=== PATIENT | male | born 1955 | race Caucasian/White ===

== ENCOUNTER 2017-03-10 10:30 | Inpatient (IN) | payer MEDICARE ==
[~2017-03-10] VITALS: Ht 177.8 cm; Wt 114.5 kg
[~2017-03-10 10:30] MED LIST: ALLO300T29 PO; ASP81TEC PO; CAR180CD PO; CRES20T PO; EZET10T PO; GLPZ10T PO; HYDR50TA4 PO; INSU100V4 SQ; METO100T PO; POTA-17 PO; [UNRECOGNIZED DRUG - CODE] SQ; cartia XT PO
[2017-03-10 12:00] VITALS: BP 165/74; PULSE 62; RESP 22; O2SAT 97
[2017-03-10] MEDS ORDERED: Heparin 25,000 Unit/500 mL 0.45% NS Premix IV ONE (12:50)
[2017-03-10] MEDS ORDERED: Nitroglycerin 50 mg/250 mL D5W 50,000 MCG in IV Premix 1 EACH IV SCH (12:55)
[2017-03-10] MEDS: 0.9% Sodium Chloride 1,000 ML IV SCH ×2 (12:59)
[2017-03-10] MEDS ORDERED: Polyethylene Glycol (PEG) 17 Gm Powder PO PRN (13:25)
[2017-03-10] MEDS ORDERED: Ondansetron 2 mg/mL 2 mL Inj IVPUSH PRN (13:25)
[2017-03-10] MEDS ORDERED: Heparin 25K Unit/500mL 0.45 NS 25,000 UNIT in IV Premix 1 EACH IV SCH (13:25)
[2017-03-10] MEDS ORDERED: Glucose 40% Oral Gel 15 Gm Tube PO PRN (13:25)
[2017-03-10 13:56] LABS: BASOPHILS % (AUTO) 0.4 % (0-3); EOSINOPHILS % (AUTO) 3.5 % (0-5); MONOCYTES % (AUTO) 10.6 % (4-12); Mean Corpuscular Hemoglobin 29.4 pg (27.0-35.0); Mean Corpuscular Volume 90.5 fL (81-100); NEUTROPHILS % (AUTO) 63.5 % (40-74); Platelet Count 229 bil/L (150-400)
[2017-03-10 14:36] LABS: TROPONIN T 0.216 ug/L (0.0-0.011)
[2017-03-10] MEDS: Nitroglycerin 50 mg/250 mL D5W 50,000 MCG in IV Premix 1 EACH IV SCH (14:45)
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
--- NOTE | 2017-03-10 16:25 | PCM.HPMED ---
Subjective Date of Service Mar 10, 2017 Primary Provider: Admitting Physician: Mauro Tavarez MD Primary Care Physician: Nopcp Attending Physician: Mauro Tavarez MD Admit Status: Direct Admit, Full Admit, Admit to [facility] Team, [facility] Telemetry Chief Complaint: Crescendo angina, chest pain. History of Present Illness: This is a 61-year-old male with presumed history of coronary artery disease based on an abnormal Lexiscan on 10/25/2016 revealing inferior infarct and inferior lateral wall infarct with an EF of 39%. An echo on 12/06/2016 revealed an EF of 50-55% with inferior wall hypokinesis. The patient has had stable exertional chest pain for last several months and exertional dyspnea. He has been followed by Dr. Sosa of cardiology. The patient has been a stable cardioprotective regimen. However Gabriel night he developed severe chest pain prompting admission to [facility]. Troponins were relatively unremarkable and the patient was treated with heparin for a short time. The patient had escalation of chest pain prompting transfer to [facility]. He does have chronic kidney disease with a creatinine of 2.0- 2.1. The patient also had mild hyperkalemia. The patient presents in transfer chest pain free. Dr. Whitehead has discussed the care coronary angiogram after fluid resuscitation and hydration with him. He is agreeable and this will likely happen tomorrow, March 11. He denies any active chest pain. There is been no real change in the pattern of his exertional chest pain that reliably improves with rest. He denies recent cough, no associated nausea or vomiting. He does have dyspnea with exertion. He denies orthopnea or pedal edema. No pleuritic pain, he denies any cough, rhinorrhea, fevers or chills. Review of Systems: No difficulty with diarrhea, blood per rectum, constipation, hematuria, or dysuria. All else reviewed and otherwise unremarkable except as noted in the history of present illness. Allergies Coded Allergies: thiopental (Verified Allergy, Severe, 03/10/17) Home Medications Vamshi Vanegas. [id number] 1955 01/06/2017 01:00 PM 07/27 allopurinol 100 mg tablet take 2 tablets by oral route at bedtime to prevent gout attack. aspirin 325 mg Tab take 1 tablet (325MG) by ORAL route every day BD INSULIN SYR 1 ML [id number] USE TO INJECT LEVEMIR 2 TIMES DAILY AND APIDRA THREE TIMES A DAY Blood Glucose Test strips use for testing blood sugars 3 times daily for diabetes. CRESTOR 20 MG TABLET TAKE ONE TABLET BY MOUTH DAILY FOR HIGH CHOLESTEROL diltiazem ER 360 mg capsule,extended release take 1 capsule (360MG) by ORAL route every day for high blood pressure. furosemide 40 mg tablet take 1 tablet by oral route every day glipizide 5 mg tablet take 1 Tablet by oral route 2 times every day before meals HUMALOG 100 UNITS/ML VIAL INJECT 20 TO 30 UNITS SUBCUTANEOUSLY THREE TIMES A DAY DIRECTED BY PHYSICIAN FOR DIABETES. EACH VIAL EXPIRES 28 DAYS AFTER FIRST USE. Insulin Syringe 1 mL 30 x 5/16" use for bid levemir and tid apidra for diabetes. Lancets,Ultra Thin use for testing blood sugars 4 times a day before meals or after meals and at bedtime Levemir 100 unit/mL subcutaneous solution INJECT 60 UNITS IN THE MORNING AND INJECT 60 UNITS AT BEDTIME for diabetes. . EACH VIAL EXPIRES 42 DAYS AFTER FIRST USE. lisinopril 40 mg tablet take 2 tablet (80MG) by ORAL route every day for high blood pressure. metoprolol succinate ER 100 mg tablet,extended release 24 hr TAKE TWO TABLETS BY MOUTH DAILY FOR HIGH BLOOD PRESSURE nitroglycerin 0.[address] 1 tablet by sublingual route at 1st sign of attack; may repeat every 5 minutes up to 3 tabs; if norelief seek medical help sodium bicarbonate 1 tablet by oral route daily Zetia 10 mg tablet take 1 tablet (10MG) by ORAL route every day for high cholesterol. PMH Coronary artery disease as noted on Lexiscan and echo. Diabetes mellitus 2, insulin-dependent. Gout Chronic kidney disease stage IV Tobacco dependence, tobacco chewing. Chronic lower back pain Obstructive sleep apnea Periodic limb movement disorder. Family History Positive for diabetes. Social History Hx Alcohol Use: Yes (daily) Hx Substance Use: No Hx Tobacco Use: Yes (chews) Living Arrangement: with Family Exam Vital Signs As charted Exam Oriented 3. No distress. Fluent speech. Normal affect. Normal skull. Normal nose and ears. Anicteric sclera, symmetric pupils Oropharynx is unremarkable, no facial droop. Neck is supple, normal thyroid. No adenopathy. Lungs are clear, normal effort rate. Heart is regular without murmur gallop or rub. Abdomen soft, protuberant but nontender. Extremities are free of pedal edema. Good radial and pedal pulses. Skin is free of rash, lesions. No petechiae or ecchymosis. Joints are grossly normal. Cranial nerves are grossly normal. Motor strength is normal in all extremities. Normal muscular tone. Lab and Diagnostics Result Diagram: 03/10/17 1345 03/10/17 1345 Assessment & Plan Crescendo angina versus non-STEMI, POA and active. We will continue heparin and nitroglycerin drips tonight. We will fluid hydrate to mitigate against kidney effects from contrast angiogram tomorrow. The patient will also be continued on aspirin and beta-blockade as well as Zeeshan inhibitor and atorvastatin. Diabetes mellitus 2, POA and stable. We will continue patient's regimen of about 6 units of long-acting insulin twice a day with nutritional and correctional lispro. Chronic kidney disease stage IV, POA and stable. Fluid resuscitation as outlined above. Hyperkalemia, POA and active. Fluid resuscitation, and Kayexalate 30 g by mouth 1. Follow potassium. Tobacco dependence, POA and stable. NicoDerm 14 mg transdermal daily Turner, POA and inactive. Continue allopurinol Obstructive sleep apnea, POA and active. Follow clinically. Patient is full resuscitation He is admitted inpatient status with anticipated stay of 2 nights Resuscitation Status: CPR: Attempt Resuscitation Time spent 45 minutes Mauro Tavarez MD Mar 10, 2017 16:25
[2017-03-10 16:27] VITALS: BP 151/82; PULSE 52; RESP 22; O2SAT 99
[2017-03-10] MEDS: Sodium Chloride LOK Flush 10 mL Syringe IVFLUSH SCH (16:30)
[2017-03-10] MEDS: Insulin LISPRO 300 Unit/3 mL Inj SUBQ SCH ×2 (17:30→23:00)
[2017-03-10 18:11] LABS: TROPONIN T 0.257 ug/L (0.0-0.011)
--- NOTE | 2017-03-10 19:19 | NUR ---
Admit Pt has nitro at 15mcg and Heparin at 1000units. No c/o chest pain. ST depression. Cardiology consult complete. Plan is greenskeeper laborer 03/11/17 at 1400
[2017-03-10 20:00] VITALS: BP 145/71; PULSE 58; RESP 16; O2SAT 98
[2017-03-10 21:14] LABS: TROPONIN T 0.274 ug/L (0.0-0.011)
[2017-03-10] MEDS: Insulin GLARgine 100 Unit/mL Syringe SUBQ SCH (23:00)
[2017-03-11] VITALS (17 sets, daily range): BP systolic 98–163; BP diastolic 40–81; PULSE 54–73; RESP 12–22; O2SAT 97–98
[2017-03-11] MEDS: Sodium Chloride LOK Flush 10 mL Syringe IVFLUSH SCH ×3 (00:30→16:31)
[2017-03-11] MEDS: Heparin 5,000 Unit/mL Inj IVPUSH PRN ×2 (02:12→15:34)
--- NOTE | 2017-03-11 02:26 | NUR ---
Chest pain VS as noted. Complained of chest pain 0130 12/28 after getting up to bedside to void. Tele SR with increased st depressions. Nitroglycerin gtt increased from 15mcg/min to 30mcg/min. EKG obtained with decreasing chest pain at the time of 09/27 and eventually resolving. Heparin gtt adjusted per protocol for PTT 32. Currently 1425units/h.
[2017-03-11] MEDS: Insulin LISPRO 300 Unit/3 mL Inj SUBQ SCH ×3 (08:00→16:34)
[2017-03-11] MEDS: Insulin GLARgine 100 Unit/mL Syringe SUBQ SCH (08:00)
--- NOTE | 2017-03-11 08:27 | PCM.PNMED ---
Subjective Date of Service Mar 11, 2017 Subjective Patient had one episode of chest pain overnight. Now he is feeling well. He has been tolerating nitroglycerin and heparin drips. No difficulty with bleeding. No dyspnea. He denies any current chest pain or nausea. No diaphoresis. No other overnight events noted. Exam Vital Signs Vital Sign - Last Date Time Temp Pulse Resp B/P Pulse Ox O2 Delivery O2 Flow Rate FiO2 03/11/17 04:00 61 12 158/70 98 Room Air 03/10/17 20:00 36.8 03/10/17 12:00 2.00 Intake and Output 03/10/17 03/10/17 03/11/17 Cumulative From/Thru 15:00 23:00 07:00 03/10/17 13:04 - 03/11/17 06:22 Intake Total 2163 ml 2163 ml Output Total 1650 ml 1650 ml Balance 513 ml 513 ml Intake Oral 100 ml 100 ml IV Total 2063 ml 2063 ml Output Urine Total 1650 ml 1650 ml Exam Oriented 3, fluent speech Lungs are clear with normal effort. Heart is regular without murmur. Abdomen is distended but soft, nontender. No tremors are free of edema. No skin rash or lesions. IVs and Medications Medications Reviewed: Medications were reviewed in detail Lab and Diagnostics Result Diagram: 03/11/1772903/10/172014 Assessment & Plan NSTEMI, POA and active. We will continue heparin and nitroglycerin drips today. Patient does have mild stable elevation of troponin. He will undergo coronary angiogram this afternoon. Diabetes mellitus 2, POA and stable. We will continue patient's regimen of about 60 units of long-acting insulin twice a day with nutritional and correctional lispro. No change to current regimen. Chronic kidney disease stage IV, POA and stable. Fluid resuscitation as outlined above. Hyperkalemia, POA and active. Fluid resuscitation, and Kayexalate 30 g by mouth 1. The patient has a pending a.m. potassium and we will treat him accordingly. Tobacco dependence, POA and stable. NicoDerm 14 mg transdermal daily Gout, POA and inactive. Continue allopurinol Obstructive sleep apnea, POA and active. Follow clinically. Patient is full resuscitation He is admitted inpatient status with anticipated stay of 2 nights Resuscitation Status: CPR: Attempt Resuscitation Mauro Tavarez MD Mar 11, 2017 08:27
[2017-03-11] MEDS: 0.9% Sodium Chloride 1,000 ML IV SCH (09:18)
[2017-03-11] MEDS ORDERED: Heparin 10,000 Unit/1,000 mL NS Premix IV ONE ×2 (10:38→16:40)
[2017-03-11] MEDS ORDERED: Heparin 1,000 Units/500 mL NS Premix IV ONE ×2 (10:38→16:40)
[2017-03-11] MEDS ORDERED: 0.9% Sodium Chloride 1,000 ML ONE (10:38)
[2017-03-11] MEDS ORDERED: fentaNYL-PF 50 mCg/mL 2 mL Inj ONE ×3 (11:00→17:16)
[2017-03-11] MEDS ORDERED: Heparin 1,000 Unit/mL 10 mL Inj ONE (11:13)
--- NOTE | 2017-03-11 11:19 | PROG NOTE ---
[address] [address] PROGRESS NOTE PATIENT: CARA MEEK : 1955 MR#: [id number] ADMIT: 03/10/2017 JOB ID: [id number] DATE: 03/11/2017 CHIEF COMPLAINT: Shortness of breath and chest pressure. SUBJECTIVE: Overnight, the patient did well on nitro drip. This morning he had one mild "twinge" of chest discomfort that lasted a few seconds and resolved on its own. OBJECTIVE: Vital signs: Temperature is afebrile, blood pressure 129/61 up to 158/70, pulse 61 beats per minute, satting 98% on room air. Obese man. No apparent distress. Eyes: No scleral icterus. Heart: Normal S1, S2. No murmurs. Lungs: Clear to auscultation anteriorly. Abdomen: Soft, positive bowel sounds. No hepatosplenomegaly. Extremities: Warm, well perfused. No hepatosplenomegaly. Skin: No rashes or lesions. MEDICATIONS: Reviewed. He is on amlodipine 5 mg twice a day, aspirin 81 mg daily, Crestor 40, heparin drip per ACS protocol, Lantus, lispro. LABORATORIES: Reviewed. His hematocrit is down slightly from 34% on admission to 42% currently. Creatinine 1.9. Potassium was elevated at 5.3, which is why we are holding OSITO inhibitor today. His troponin-T was most recently 0.274. Lipids reviewed. Total cholesterol was 118, triglycerides 72, HDL 46, LDL 68. ASSESSMENT AND PLAN: In summary, this is a 61-year-old man with hypertension, hyperlipidemia. Comes in with non-STEMI. He has multiple barriers to cardiac catheterization including renal insufficiency; however, given chest discomfort that lasts and elevated troponin, the patient elected to be treated via invasive therapy. Consent obtained. All questions answered. The patient agrees to proceed. Hyperkalemia: The patient has been evaluated by the primary team. While his potassium is elevated at this time, it is not so high that we would have to cancel his procedure. Once we are done we can pursue insulin, bicarb, and possibly Kayexalate after the procedure is complete. Of course lisinopril 40 twice a day is on hold. Thank you very much for the opportunity to evaluate him.
--- NOTE | 2017-03-11 11:21 | NUR ---
Social Work: Initial Assessment/Multidisciplinary Rounds D: Per EMR review, pt is a 61 year old male admitted for NSTEMI. Pt is [facility] with Medicare; pt has no LTC or VA benefits. PCP is Dr. Mauro Tavarez. NOK is Arlene Vanegas, , . Advanced directives not completed-information provided. Readmit score is high, 3/8. Pt discussed in multidisciplinary rounds; pt remains in CCU and is scheduled for a heart cath today. No concerns about pt's capacity for self-care. Pt is I at baseline. SOFTWARE SUPPORT ENGINEER met with the patient at bedside. Sw role explained, contact information and d/c planning checklist provided. See initial assessment. Pt lives in [place] with his . Pt uses no DME, continues to drive and I with ADLs and care. Pt has never had HH or skilled rehab and lives in a single story rambler with 4 steps to enter. Pt expresses no concerns about his PLOF and states that he anticipates having no d/c needs from social work. He is receptive to d/c planning if needs arise. A: Pt who is I at baseline. P: Evolving; Anticipate pt to d/c home when stable with his to transport. SOFTWARE SUPPORT ENGINEER to continue to follow to assess for unmet d/c needs. VAISHALI Vang Addendum: 03/11/17 at 1126 by OBED MARTINEZ Amended: Links added.
[2017-03-11] MEDS ORDERED: Atropine 1 mg/10 mL (Code) Syringe ONE (11:29)
--- NOTE | 2017-03-11 11:56 | NUR ---
Vital signs stable, patient pain free this morning. IVFs infusing, Heparin gtt stopped at [address] Whitehead at bedside. Nitro infusing. Bedside BG 87, NPO, held insulin/patient also refused. To labor utilization superintendent at 1045.
[2017-03-11] MEDS ORDERED: 0.9% Sodium Chloride 250 ML IV PRN (12:11)
[2017-03-11] MEDS ORDERED: 0.9% Sodium Chloride 1,000 ML IV SCH (12:15)
[2017-03-11] MEDS ORDERED: HYDROcodone-APAP 5-325 mg Tablet PO PRN (12:15)
--- NOTE | 2017-03-11 13:50 | CS94 ---
[address] [address] DIAGNOSTIC CARDIAC CATHETERIZATION PATIENT: CARA MEEK : 1955 MR#: [id number] ADMIT: 03/10/2017 JOB ID: [id number] SERVICE DATE: 03/11/2017 CHIEF COMPLAINT: Shortness of breath and chest pressure. INDICATION FOR PROCEDURE: A 61-year-old with non-STEMI and dynamic ST depressions in lateral leads. PROCEDURE PERFORMED: 1. Left heart catheterization-selective coronary angiograms. 2. Right common femoral artery access under ultrasound guidance. 3. Left ventricular end-diastolic pressure hemodynamic measurement. 4. Angio-Seal closure device. COMPLICATIONS: None. BLOOD LOSS: 20 mL CONTRAST: Iodinated contrast agent used 115 mL. FLUOROSCOPY TIME: 13.7 minutes. METHOD: Following informed consent, the patient was prepped and draped in the usual sterile fashion. A 6-Bahraini sheath was placed in the right common femoral artery. Sheath placement was confirmed via femoral angiogram. Sheath placement was performed under ultrasound guidance. JL4 and JR4 catheters were used to engage the left main and right coronary artery ostia, respectively. Hand injection and craniocaudal angulation were used to obtain selective coronary angiograms. All exchanges were performed over a wire. The right coronary artery ostium engagement was technically challenging. I attempted a 6-Bahraini JR4, 5-Bahraini JR4, AL1, AR-MOD, and 3DRC unsuccessfully. Subsequently I switched to a six-Bahraini JR5 catheter was able to successfully engage the coronary artery ostium. The JR4 catheter was advanced into the left ventricle. Left ventricular end-diastolic pressure was recorded. At this point, the catheter was withdrawn into the aorta under continuous hemodynamic monitoring. Hemostasis was obtained via Angio-Seal closure device. FINDINGS: Hemodynamics: Left ventricular end-diastolic pressure was 25 mmHg. There is no evidence of aortic stenosis based on pullback. The patient was in normal sinus rhythm with occasional PVCs during the procedure. Ventriculogram: Deferred by intention to conserve contrast. Femoral angiogram: Right common femoral artery gives rise to SFA and profunda. No obstructive lesions are seen. Coronary angiograms: Left main gives rise to ramus intermedius, left anterior descending, and the circumflex artery. Left main is a short calcified vessel. There is no dampening on engagement. There is good blow-back. There is a 30% to 40% distal left main lesion. The circumflex is subtotally occluded ostially. It gives rise to a medium first obtuse marginal branch, a large second obtuse marginal branch, and a medium third obtuse marginal branch. There is a 50% proximal circumflex. There is a subtotal occlusion ostially, there is a medium 50% stenosis at the fpc point between the ostium and the first obtuse marginal branch, and there is a long 80% stenosis just proximal to the first obtuse marginal branch. Ramus intermedius is a bifurcating vessel. It gives rise to superior and inferior limbs. There is no hemodynamically significant disease present in the ramus. Left anterior descending is a diffusely calcified vessel with 50% lesions in the proximal portion and 80% stenosis in the midportion just proximal to the second diagonal branch. The right coronary artery is fed primary the via left to right collaterals. Right coronary artery engagement was a challenge due to heavy calcification of the ostium and a tight 80% stenosis of the ostial right coronary artery. There is also a long heavy calcified 80% proximal stenosis. The right coronary artery is a dominant vessel. It gives rise to the PDA and posterolateral branch. There are tandem lesions in the PDA including a high-grade 80% proximal PDA lesion. After the PDA the right coronary artery demonstrates an 80% diffuse proximal posterior lateral branch stenosis. IMPRESSION: Severe coronary artery disease involving 80% mid LAD lesion, subtotally occluded circumflex, and 90% ostial and 90% proximal right coronary artery lesions fed via [id number] collaterals. PLAN: I recommend surgical revascularization. This case is particularly challenging due to difficulty engaging the right coronary artery ostium which is why extra time was required to facilitate multiple catheter exchanges. Thank you very much for the opportunity to participate in the care of this patient.
[2017-03-11] MEDS: Nitroglycerin 50 mg/250 mL D5W 50,000 MCG in IV Premix 1 EACH IV SCH (15:49)
[2017-03-11] MEDS ORDERED: MeTOProlol 1 mg/mL 5 mL Inj ONE (15:58)
--- NOTE | 2017-03-11 16:10 | NUR ---
Returned from Manager Fleet at 1215, post angiogram. Right groin site stable, VSS stable, SR/SB on tele. Resting comfortably until 1510 when he stood for use his urinal, then developed 10/10 anterior chest discomfort. Nitro gtt increased, Morphine IV given with little relief; Morphine repeated with larger dose; pain from 10/10 to 6/10 for a few minutes, then escalates. MD notified. 12-lead EKG obtained. Metoprolol 5 mg IV given. Heparin bolus 5000u, gtt restarted at 1000units. Chest pain persisting. Plan is to return to laborer car barn for balloon pump, transfer to [facility]. Patient has notified his .
--- NOTE | 2017-03-11 18:10 | CS94 ---
[address] [address] DIAGNOSTIC CARDIAC CATHETERIZATION PATIENT: CARA MEEK : 1955 MR#: [id number] ADMIT: 03/10/2017 JOB ID: [id number] SERVICE DATE: 03/11/2017 CHIEF COMPLAINT: Chest pain. PROCEDURE INDICATION: The patient is a 61-year-old man with hemodynamically significant three-vessel disease pending surgical revascularization. He developed worsening 10/10 chest pain on the floor refractory to medical therapy including nitroglycerin at 200 mcg/minute and 14 mg of morphine IV. Therefore, he was brought down to the pathology laboratory director for intra-aortic balloon pump placement. PROCEDURES: Left common femoral artery vascular access under ultrasound guidance. Femoral angiogram to confirm sheath placement. Intraaortic balloon pump placement. METHOD: Following informed consent, the patient was prepped and draped in usual sterile fashion. A Seldinger technique was used to access left common femoral artery. Sheath placement was confirmed via femoral angiogram. Initially I used 6-Serbian dilator and then upsized to an 8-Serbian dilator and put an 8-Serbian sheath in with a side-arm. Intraaortic balloon pump was placed. The superior portion of intraaortic balloon pump was just below the left subclavian just above the alexa. The inferior portion of intraaortic balloon pump was in the abdominal aorta. The intraaortic balloon pump was secured. Patient was chest pain free following the procedure. Balloon pump was left at 1:1 with appropriate augmentation and heparin drip was restarted. Thank you very much for the opportunity to evaluate this patient. COMPLICATIONS: None.
--- NOTE | 2017-03-11 18:34 | NUR ---
Received Received from labor arbitrator about 181. VSS on balloon pump. MAP 64-84. Denies chest pain. SPO2 92-95% on RA. Heparin infusing at 100units/hr. NTG at 25mcg/min. IVF at TKO. Right groin stable from previous procedure. Left groin without bleeding or hematoma at access site. Peripheral pulses +2. precuations reviewed and verbalizes understanding. Frequent reminders given. Belongings brought from room. not in waiting room. continue to monitor and await transfer team.
--- NOTE | 2017-03-11 19:42 | NUR ---
Report/Transport team/chu Report called to [address] [place] [address] at [facility]. Updated when transport time changed. Transport team here about 1929. Report given. Tele SR with 1st degree AVB. Assessment unchanged. Discussed need for chu r/t strict bedrest, flat. Reviewed procedure and pt. agreed. Placed 16fr chu per protocol and pre cath orders at 1905. Tolerated well. To leave as soon as transport team is set up to transport. Addendum: 03/11/17 at 2220 by SANDRA STODDARD RN Tele SR, no 1st degree block.
--- NOTE | 2017-03-11 22:20 | NUR ---
Transfer Pt. to [facility] via ambulance with all belongings at 2015. Pt. tolerated well with stable VS and no chest pain. Report to receiving RN. [facility] staff transferred pt. to their balloon pump without complications.
--- NOTE | 2017-03-14 12:46 | PCM.DC.MED ---
Discharge Summary Date of Service Mar 11, 2017 Dates of Hospitalization Date of Hospital Admission Mar 10, 2017 at 12:16 Date of Discharge: Mar 11, 2017 Providers: Admitting Physician: Mauro Tavarez MD Primary Care Physician: Nopcp Attending Physician: Mauro Tavarez MD Diagnosis at Time of Discharge Diagnosis at Time of Discharge 1. Unstable angina 2. Triple vessel coronary artery disease 3. Diabetes mellitus 2 Procedures Invasive Procedures Coronary angio done on the day of discharge revealing triple vessel disease best approached with surgical revascularization. Brief History This is a 61-year-old male with presumed history of coronary artery disease based on an abnormal Lexiscan on 10/25/2016 revealing inferior infarct and inferior lateral wall infarct with an EF of 39%. An echo on 12/06/2016 revealed an EF of 50-55% with inferior wall hypokinesis. The patient has had stable exertional chest pain for last several months and exertional dyspnea. He has been followed by Dr. Sosa of cardiology. The patient has been a stable cardioprotective regimen. However Friday night he developed severe chest pain prompting admission to [facility]. Troponins were relatively unremarkable and the patient was treated with heparin for a short time. The patient had escalation of chest pain prompting transfer to [facility]. He does have chronic kidney disease with a creatinine of 2.0- 2.1. The patient also had mild hyperkalemia. The patient presents in transfer chest pain free. Dr. Whitehead has discussed the care coronary angiogram after fluid resuscitation and hydration with him. He is agreeable and this will likely happen tomorrow, March 11. He denies any active chest pain. There is been no real change in the pattern of his exertional chest pain that reliably improves with rest. He denies recent cough, no associated nausea or vomiting. He does have dyspnea with exertion. He denies orthopnea or pedal edema. No pleuritic pain, he denies any cough, rhinorrhea, fevers or chills. Hospital Course NSTEMI, POA and active. We will continue heparin and nitroglycerin drips today. Patient does have mild stable elevation of troponin. He will undergo coronary angiogram this afternoon. Diabetes mellitus 2, POA and stable. We will continue patient's regimen of about 60 units of long-acting insulin twice a day with nutritional and correctional lispro. No change to current regimen. Chronic kidney disease stage IV, POA and stable. Fluid resuscitation as outlined above. Hyperkalemia, POA and active. Fluid resuscitation, and Kayexalate 30 g by mouth 1. The patient has a pending a.m. potassium and we will treat him accordingly. Tobacco dependence, POA and stable. NicoDerm 14 mg transdermal daily Gout, POA and inactive. Continue allopurinol Obstructive sleep apnea, POA and active. Follow clinically. Patient is full resuscitation He was admitted and heparinized. Angiogram reveal multi vessel disease and arrangments were made to transfer to [facility] for CABG. He remained stable throughout hospitalization. Exam Vital Signs (Last) Date Time Temp Pulse Resp B/P Pulse Ox O2 Delivery O2 Flow Rate FiO2 03/11/17 19:45 66 12 99/42 03/11/17 15:30 98 Nasal Cannula 2.00 03/11/17 12:15 37.0 Exam Patient seen and examined on the day of discharge. Test 03/10/17 13:45 03/10/17 20:15 03/11/17 07:30 03/11/17 14:05 White Blood Count 8.3th/mm3 (3.8-10.1) Red Blood Count 3.78mil/mm3 (4.40-5.80) Mean Corpuscular Volume 90.5fL (81-100) Mean Corpuscular Hemoglobin 29.4pg (27.0-35.0) Mean Corpuscular Hemoglobin Concent 32.5% (32.0-37.0) Red Cell Distribution Width 14.1% (12.3-15.4) Platelet Count 229bil/L (150-400) Neutrophils (%) (Auto) 63.5% (40-74) Lymphocytes (%) (Auto) 21.4% (14-46) Monocytes (%) (Auto) 10.6% (4-12) Eosinophils (%) (Auto) 3.5% (0-5) Basophils (%) (Auto) 0.4% (0-3) Hemoglobin A1c 6.6% (4.8-5.6) Total Bilirubin 0.2mg/dL (0.0-1.2) Aspartate Amino Transf (AST/SGOT) 30U/L (0-50) Alanine Aminotransferase (ALT/SGPT) 31U/L (0-44) Alkaline Phosphatase 58U/L (25-160) Total Protein 6.0g/dL (6.4-8.4) Albumin 4.1g/dL (3.4-5.0) Troponin T 0.274ug/L (0.0-0.011) Hemoglobin 10.3g/dL (13.8-17.2) Hematocrit 31.6% (41.0-50.0) Sodium Level 144mEq/L (134-144) Potassium Level 5.3mEq/L (3.5-5.2) Chloride Level 113mEq/L (97-108) Carbon Dioxide Level 18mmol/L (18-29) Blood Urea Nitrogen 41mg/dL (8-27) Creatinine 1.94mg/dL (0.76-1.27) Estimat Glomerular Filtration Rate 38mL/min (>59) Glucose Level 91mg/dL (60-99) Calcium Level 8.6mg/dL (8.5-10.1) Triglycerides Level 72mg/dL (0-149) Cholesterol Level 118mg/dL (100-199) LDL Cholesterol, Calculated 57.600mg/dL (0-99) VLDL Cholesterol 14.400mg/dL HDL Cholesterol 46mg/dL (>39) Cholesterol/HDL Ratio 2.57 (0.0-4.4) Activated Partial Thromboplast Time 25.3sec (22.8-33.0) Discharge Medications Discharge Medications ([cartia XT]) 180 MG PO AM (Reported) Allopurinol-Expunged Drug, Do Not Renew! (Allopurinol-Expunged Drug, Do Not Renew!) 300 Mg Tablet 300 MG PO HS (Reported) Aspirin-Expunged Drug, Do Not Renew! (Aspirin EC-Expunged Drug, Do Not Renew!) 81 Mg Tablet 81 MG PO DAILY (Reported) Diltiazem-Expunged Drug, Do Not Renew! (Diltiazem CD-Expunged Drug, Do Not Renew !) 180 Mg Capsule 360 MG PO AM (Reported) Ezetimibe (Zetia) 10 Mg Tablet 10 MG PO AM (Reported) Hydrochlorothiazide-Expunged, Do Not Renew! (Hydrochlorothiazide-Expunged, Do Not Renew!) 50 Mg Tablet 50 MG PO HS (Reported) Insulin Detemir-Expunged Drug, Do Not Renew! (Levemir-Expunged Drug, Do Not Renew!) 100 U/Ml Vial 50-60 U SQ BID (Reported) Insulin gluLISINE-Expunged Drug, Do Not Renew (Apidra -Expunged Drug, Do Not Renew) 100 Unit/Ml Unit 100 U SQ AC (Reported) sliding scale Metoprolol Tart-Expunged Drug, Do Not Renew! (Metoprolol Tart-Expunged Drug, Do Not Renew!) 100 Mg Tablet 100 MG PO BID (Reported) Potassium Citrate-Expunged Drug, Do Not Renew (Urocit-K--Expunged Drug, Do Not Renew!) 10 Meq Tablet.sa 10 MEQ PO HS (Reported) Rosuvastatin-Expunged Drug, Do Not Renew! (Crestor-Expunged Drug, Do Not Renew! ) 20 Mg Tablet 20 MG PO AM (Reported) glipiZIDE-Expunged Drug, Do Not Renew! (glipiZIDE-Expunged Drug, Do Not Renew!) 10 Mg Tablet 10 MG PO BID (Reported) Followup Plan Disposition: Transfer to [facility] Time spent 40 min Mauro Tavarez MD Mar 14, 2017 12:46
== END 2017-03-11 19:42 | disposition short-term general hospital (02) | DRG 271 ==
LOC: CCU 12:16
PROVIDERS: ADMIT Hospitalist; ATTEND Hospitalist
PROC: 5A02210 Assistance with Cardiac Output using Balloon Pump, Continuous (ICD-10-PCS; principal; 2017-03-11)
PROC: 4A023N7 Measurement of Cardiac Sampling and Pressure, Left Heart, Percutaneous Approach (ICD-10-PCS; 2017-03-11)
PROC: B2151ZZ Fluoroscopy of Left Heart using Low Osmolar Contrast (ICD-10-PCS; 2017-03-11)
PROC: B2111ZZ Fluoroscopy of Multiple Coronary Arteries using Low Osmolar Contrast (ICD-10-PCS; 2017-03-11)
DX: I21.4 Non-ST elevation (NSTEMI) myocardial infarction (principal); N18.4 Chronic kidney disease, stage 4 (severe); E87.5 Hyperkalemia; I25.110 Atherosclerotic heart disease of native coronary artery with unstable angina pectoris; E11.9 Type 2 diabetes mellitus without complications; E78.5 Hyperlipidemia, unspecified; Z79.4 Long term (current) use of insulin; I12.9 Hypertensive chronic kidney disease with stage 1 through stage 4 chronic kidney disease, or unspecified chronic kidney disease; F17.220 Nicotine dependence, chewing tobacco, uncomplicated; M10.9 Gout, unspecified

== ENCOUNTER 2017-04-14 13:27 | Emergency (ER) | payer MEDICARE ==
[~2017-04-14] VITALS: Ht 177.8 cm; Wt 113.6 kg
[2017-04-14 13:31] VITALS: BP 174/69; PULSE 67; RESP 18; O2SAT 99
--- NOTE | 2017-04-14 13:39 | ED.REPORT ---
HPI-General Illness Date of Service Apr 14, 2017 ED Provider: Celso Valente MD Pt is a 61 year old male with a history of CABGx3, hypertension, DM, and IN on Warfarin who presents to the ED complaining of painful bruising to his left inner thigh onset two weeks since taking Warfarin. He describes his pain as constant and tender to touch with warmth. He was sent to [facility] on 03/10/17 for his triple bypass surgery. Pt denies new chest pain, SOB, lightheadedness, or dizziness. He was seen yesterday at [facility] for the same symptoms, and he reports that his INR was 2.5 there. Nursing Notes Stated Complaint: BLOOD VEIN LEAK Chief Complaint: General Complaint Nursing Notes Reviewed: Yes Allergies: Coded Allergies: thiopental (Verified Allergy, Severe, 03/10/17) Scheduled ([cartia XT]) 180 MG PO AM Allopurinol-Expunged Drug, Do Not Renew! (Allopurinol-Expunged Drug, Do Not Renew!) 300 Mg Tablet 300 MG PO HS Aspirin-Expunged Drug, Do Not Renew! (Aspirin EC-Expunged Drug, Do Not Renew!) 81 Mg Tablet 81 MG PO DAILY Diltiazem-Expunged Drug, Do Not Renew! (Diltiazem CD-Expunged Drug, Do Not Renew !) 180 Mg Capsule 360 MG PO AM Ezetimibe (Zetia) 10 Mg Tablet 10 MG PO AM Hydrochlorothiazide-Expunged, Do Not Renew! (Hydrochlorothiazide-Expunged, Do Not Renew!) 50 Mg Tablet 50 MG PO HS Insulin Detemir-Expunged Drug, Do Not Renew! (Levemir-Expunged Drug, Do Not Renew!) 100 U/Ml Vial 50-60 U SQ BID Insulin gluLISINE-Expunged Drug, Do Not Renew (Apidra -Expunged Drug, Do Not Renew) 100 Unit/Ml Unit 100 U SQ AC sliding scale Metoprolol Tart-Expunged Drug, Do Not Renew! (Metoprolol Tart-Expunged Drug, Do Not Renew!) 100 Mg Tablet 100 MG PO BID Potassium Citrate-Expunged Drug, Do Not Renew (Urocit-K--Expunged Drug, Do Not Renew!) 10 Meq Tablet.sa 10 MEQ PO HS Rosuvastatin-Expunged Drug, Do Not Renew! (Crestor-Expunged Drug, Do Not Renew! ) 20 Mg Tablet 20 MG PO AM glipiZIDE-Expunged Drug, Do Not Renew! (glipiZIDE-Expunged Drug, Do Not Renew!) 10 Mg Tablet 10 MG PO BID General Time Seen by MD: 13:38 Chief Complaint Other (Bruising to left upper inner thigh) Hx Obtained From: Patient Arrived By: Walk-in Sudden in Onset?: No Onset Occurred: More than a week ago... (2 weeks) Quality: Painful Severity: Current: Moderate Severity: Maximum: Moderate Recent Healthcare: Recent doctor visit, Recent hospitalization Similar Sx Previous: Yes Past Medical History Past Medical History IN Chronic back pain Reports: Diabetes mellitus, Hypertension Past Surgical History CABG x3 at [facility] Back Knee Social History Chews Tobacco Alcohol Use: 1-3 per week Other Social History: Good social support Ambulatory Status Independent Review of Systems Full Review of Systems Respiratory: Denies: Shortness of breath Cardiovascular: Denies: Chest pain Skin: Reports Bruising (to left upper inner thigh) Neurologic: Denies: Dizziness, Lightheaded Complete sys rev & neg: except as marked. Physical Exam Vital Signs Vital Signs Date Time Temp Pulse Resp B/P Pulse Ox O2 Delivery O2 Flow Rate FiO2 04/14/17 15:31 36.8 88 17 161/51 96 Room Air 04/14/17 15:20 36.8 88 17 161/51 96 Room Air 04/14/17 13:31 36.7 67 18 174/69 99 Room Air Initial VS: Reviewed Head / Eyes: Atraumatic, Normocephalic Neck: Supple, Full range of motion Abdomen / GI: Soft, Non-tender Neurologic: Alert, Oriented, Nonfocal Psychiatric: Mood/affect normal, Behavior normal, Normal thought content General/Constitutional: Awake, Alert Respiratory / Chest: Atraumatic, Breath sounds NL, Breath sounds = bilat, No respiratory distress Cardiovascular: Heart rate NL, Regular rhythm, Heart sounds NL, No murmurs Lower Extremity / Pelvis / MS: Neurologic intact, Vascular intact 3x3 firm, swollen contusion on left upper thigh contusion, likely a hematoma Interpretation & Diagnostics Lab Results Interpretation Result Diagram: 04/14/17 1411 04/14/17 1411 Test 04/14/17 14:11 White Blood Count 8.5th/mm3 (3.8-10.1) Red Blood Count 3.51mil/mm3 (4.40-5.80) Hemoglobin 9.8g/dL (13.8-17.2) Hematocrit 30.9% (41.0-50.0) Mean Corpuscular Volume 88.0fL (81-100) Mean Corpuscular Hemoglobin 27.9pg (27.0-35.0) Mean Corpuscular Hemoglobin Concent 31.7% (32.0-37.0) Red Cell Distribution Width 15.9% (12.3-15.4) Platelet Count 345bil/L (150-400) Neutrophils (%) (Auto) 64.8% (40-74) Lymphocytes (%) (Auto) 22.4% (14-46) Monocytes (%) (Auto) 7.6% (4-12) Eosinophils (%) (Auto) 4.1% (0-5) Basophils (%) (Auto) 0.5% (0-3) Prothrombin Time 19.4sec (8.1-12.5) Prothromb Time International Ratio 1.79ratio Sodium Level 139mEq/L (134-144) Potassium Level 3.2mEq/L (3.5-5.2) Chloride Level 100mEq/L (97-108) Carbon Dioxide Level 24mmol/L (18-29) Blood Urea Nitrogen 49mg/dL (8-27) Creatinine 1.91mg/dL (0.76-1.27) Estimat Glomerular Filtration Rate 38mL/min (>59) Glucose Level 186mg/dL (60-99) Calcium Level 8.8mg/dL (8.5-10.1) Total Bilirubin 0.3mg/dL (0.0-1.2) Aspartate Amino Transf (AST/SGOT) 17U/L (0-50) Alanine Aminotransferase (ALT/SGPT) 14U/L (0-44) Alkaline Phosphatase 113U/L (25-160) Total Protein 6.7g/dL (6.4-8.4) Albumin 3.7g/dL (3.4-5.0) Re-Eval/Medical Decision Med Decision/Clinical Course 61-year-old male with left thigh hematoma 2 weeks. Patient had cardiac catheterization one month ago with balloon pump and CABG. He was placed on warfarin 2 weeks ago and developed hematoma. No change in the last 2 weeks. His hemoglobin is stable. His blood pressure is stable. He has no sign symptoms of anemia. There is no evidence of infection. Given his hemoglobin is stable and there has been no change in the past 2 weeks I recommend he follow up with his primary doctor tomorrow for recheck. I do not want to discontinue his anticoagulants given his recent CABG. I recommend he follow up with his environmental director. Discharged with return precautions. Source of Hx: Old records Time of Eval: 15:13 Re-Evaluation/Progress Note: Patient rechecked. Discussed plan for discharge. Patient agrees and understands plan. Gave all RTER and follow-up directions. All questions addresssed at this time. Counseled Regarding: Diagnosis, Lab results, Need for follow-up, When/why to return to ED Discharge & Departure Primary Impression: Hematoma of left lower extremity Encounter type: initial encounter Qualified Code: S80.12XA - Contusion of left lower leg, initial encounter Disposition: Home Discharge Condition All VS Reviewed: Yes Condition: Stable Patient Instructions: Hematoma (ED) Additional Instructions: Thank you for entrusting us with your care today. Your lab results were all reassuring. Put ice packs on your hematoma to help with the bleeding. Keep taking Coumadin as prescribed. Please follow-up appointment with your primary care doctor in 2-3 days for a recheck. If your hematoma doesn't go down in the next few days, I recommend follow-up with your environmental director to talk about your anticoagulants. Please return to the emergency department if you are having any new or worsening symptoms, such as increased swelling, chest pain, lightheadedness, dizziness, numbness/tingling, or weakness. Referrals: NOPCP (PCP) Mauro Tavarez MD Scribe Attestation Portions of this note were transcribed by Kristina Gutierrez. I, Dr. Valente personally performed the history, physical exam and medical decision-making; I reviewed and confirmed the accuracy of the information in the transcribed note. copies to: Mauro Tavarez MD, Ben M MD Apr 14, 2017 13:39 Kristina Gutierrez Apr 14, 2017 14:09
[2017-04-14 14:22] LABS: BASOPHILS % (AUTO) 0.5 % (0-3); EOSINOPHILS % (AUTO) 4.1 % (0-5); MONOCYTES % (AUTO) 7.6 % (4-12); Mean Corpuscular Hemoglobin 27.9 pg (27.0-35.0); NEUTROPHILS % (AUTO) 64.8 % (40-74); Platelet Count 345 bil/L (150-400)
[2017-04-14 14:38] LABS: INR 1.79 ratio
[2017-04-14 15:20] VITALS: BP 161/51; PULSE 88; RESP 17; O2SAT 96
[2017-04-14 15:31] VITALS: BP 161/51; PULSE 88; RESP 17; O2SAT 96
== END 2017-04-14 15:32 | disposition home or self-care (01) ==
LOC: SED 13:27
DX: S70.12XA Contusion of left thigh, initial encounter (principal); X58.XXXA Exposure to other specified factors, initial encounter; Y93.89 Activity, other specified; Y92.89 Other specified places as the place of occurrence of the external cause; Y99.8 Other external cause status; E11.9 Type 2 diabetes mellitus without complications; I10 Essential (primary) hypertension; I25.2 Old myocardial infarction; Z95.1 Presence of aortocoronary bypass graft; Z79.82 Long term (current) use of aspirin; Z79.01 Long term (current) use of anticoagulants; Z79.4 Long term (current) use of insulin; Z88.4 Allergy status to anesthetic agent